=== PATIENT | male | born 1935 | race Caucasian/White ===

== ENCOUNTER 2018-02-15 13:56 | Emergency (ER) | payer MEDICARE, BC, SELFPAY ==
[2018-02-15 13:57] VITALS: BP 120/64; PULSE 95; RESP 16; TEMP 37.8; O2SAT 99; BMI 24.6
--- NOTE | 2018-02-15 14:29 | RAD_ITS ---
STUDY: X-RAY CHEST REASON FOR EXAM: Male, 82 years old. Fever. TECHNIQUE: PA and lateral views of the chest. COMPARISON: None. FINDINGS: EKG electrodes are seen. Hyperinflation. The lungs are clear. There is no demonstrated pleural abnormality. Normal size heart. Normal mediastinum and rubin. Normal visualized pulmonary arteries. There is atherosclerotic calcification of the aortic arch with tortuosity. There are diffuse degenerative changes of the visualized thoracic spine. Normal visualized ribs, clavicles, and shoulders. There is no demonstrated abnormality of the visualized soft tissue structures of the upper abdomen. RAD/Chest PA and Lateral IMPRESSION: Normal x-ray examination of the chest. Electronically Signed: Saji Fitzgerald MD at 15:51 EDT Tel [phone], Service support ,
--- NOTE | 2018-02-15 14:31 | ED.VISSUMM ---
- ER Visit Summary Date of Service: 02/15/18 Chief Complaint: Fever History of Present Illness: The patient is a 82 M history of melanoma with liver and bone metastases. Currently undergoing chemotherapy from a cancer center in [place]. Patient states he is recently had urinary frequency. Today started having a fever. He denies vomiting or diarrhea. States he has had chills and night sweats. Denies melena. Denies any significant cough or shortness of breath. Currently he is undergoing chemotherapy and is unsure of his blood counts. Physical Examination: Older male no acute distress. Vital signs are stable afebrile. Blood pressure 120/64. Temperature 100.1. Pulse ox 9 9% room air no signs of hypoxia. HEENT exam unremarkable. Moist wheeze membranes. Neck nontender no lymphadenopathy. Lungs clear to auscultation bilaterally. Heart regular rate and rhythm no murmur. Abdomen is soft and nontender. Normal bowel sounds no peritoneal signs. He is moving all 4 extremities. They are neurovascularly intact. Normal motor strength and sensation. Back exam is nontender. Both his anterior chest and upper back he has acne with some redness. Neurologically is awake and alert with no focal motor deficits. Test Results: Seizures white count of 5.5 with 73% segmental neutrophils. No bands. H&H of 11.8 and 35. No old labs available for comparison. Chemistry panel shows an anion gap is 7. BUN 31 creatinine 1.3 consistent with mild dehydration. Urinalysis was normal with no nitrates or white cells. Rare bacteria it was sent for culture. This is normal at 1.1. Blood cultures are pending. Chest x-ray shows no acute abnormality read both by myself the radiologist. No pneumonia. Emergency Department Course and Treatment: Immunocompromised male with a fever currently which being treated for melanoma with metastases. On chemotherapy. He will be treated with p.o. Tylenol for the fever and a liter of normal saline. Labs and cultures will be obtained. Treatment Plan: Repeat exam at both 1520 and 1556 he is doing well he feels comfortable being discharged home. His vital signs are stable. His blood pressure remains about 125/70. I did speak with his oncologist from [place]. He wants me to stop the patient's chemo medication that he takes at home. He said with this drug is about a 52% likelihood of patients developing fevers. He does not want me to start him on any antibiotics at this time and their office will follow him up when he gets back to [place]. This was all discussed with the patient is comfortable with the plan. Disposition: Discharge Impression: Acute fever of uncertain etiology History of melanoma with bone and liver metastases Currently being treatment with chemotherapy and immunocompromised. This note was generated with [employer] dictation software. It may contain incorrect words, spelling, and punctuation that were not noted in review of the chart prior to signing ED Disposition - Plan for ED Patient: Chief Complaint: Fever Referrals: [facility] Doctor,Out of [Primary Care Provider] -
--- NOTE | 2018-02-15 14:34 | ED.DCSUM_ITS ---
- ER Visit Summary Date of Service: 02/15/18 Chief Complaint: Fever History of Present Illness: The patient is a 82 M history of melanoma with liver and bone metastases. Currently undergoing chemotherapy from a cancer center in [place]. Patient states he is recently had urinary frequency. Today started having a fever. He denies vomiting or diarrhea. States he has had chills and night sweats. Denies melena. Denies any significant cough or shortness of breath. Currently he is undergoing chemotherapy and is unsure of his blood counts. Physical Examination: Older male no acute distress. Vital signs are stable afebrile. Blood pressure 120/64. Temperature 100.1. Pulse ox 9 9% room air no signs of hypoxia. HEENT exam unremarkable. Moist wheeze membranes. Neck nontender no lymphadenopathy. Lungs clear to auscultation bilaterally. Heart regular rate and rhythm no murmur. Abdomen is soft and nontender. Normal bowel sounds no peritoneal signs. He is moving all 4 extremities. They are neurovascularly intact. Normal motor strength and sensation. Back exam is nontender. Both his anterior chest and upper back he has acne with some redness. Neurologically is awake and alert with no focal motor deficits. Test Results: Seizures white count of 5.5 with 73% segmental neutrophils. No bands. H&H of 11.8 and 35. No old labs available for comparison. Chemistry panel shows an anion gap is 7. BUN 31 creatinine 1.3 consistent with mild dehydration. Urinalysis was normal with no nitrates or white cells. Rare bacteria it was sent for culture. This is normal at 1.1. Blood cultures are pending. Chest x-ray shows no acute abnormality read both by myself the radiologist. No pneumonia. Emergency Department Course and Treatment: Immunocompromised male with a fever currently which being treated for melanoma with metastases. On chemotherapy. He will be treated with p.o. Tylenol for the fever and a liter of normal saline. Labs and cultures will be obtained. Treatment Plan: Repeat exam at both 1520 and 1556 he is doing well he feels comfortable being discharged home. His vital signs are stable. His blood pressure remains about 125/70. I did speak with his oncologist from [place]. He wants me to stop the patient's chemo medication that he takes at home. He said with this drug is about a 52% likelihood of patients developing fevers. He does not want me to start him on any antibiotics at this time and their office will follow him up when he gets back to [place]. This was all discussed with the patient is comfortable with the plan. Disposition: Discharge Impression: Acute fever of uncertain etiology History of melanoma with bone and liver metastases Currently being treatment with chemotherapy and immunocompromised. This note was generated with [employer] dictation software. It may contain incorrect words, spelling, and punctuation that were not noted in review of the chart prior to signing ED Disposition - Plan for ED Patient: Chief Complaint: Fever Referrals: [facility] Doctor,Out of [Primary Care Provider] -
[2018-02-15 14:57] VITALS: BP 124/67; PULSE 78; RESP 17; O2SAT 95
[2018-02-15 14:59] LABS: Color, Urine Yellow (Yellow); Glucose, Dipstick Normal (Normal); Ketone-Dipstick Negative (Negative); Leukocyte Esterase-Dipstick Negative /ul (Negative); Mucous, Urine 0 SEEN /hpf (<or=2+); Nitrite-Dipstick Negative (Negative); Occult Blood-Urine 50 /ul (Negative); Protein-Dipstick 15 mg/dl (Negative); Squamous Epithelial Cells - UA 0 SEEN /hpf (0-5); Urine Bilirubin Dipstick Negative (Negative); Urine Clarity Clear (Clear); Urine Urobilinogen Normal (Normal)
[2018-02-15 15:01] LABS: Basophil# 0.01 X10^3/uL; Basophil% 0.2 % (0-1); Eosinophil# 0.01 X10^3/uL; Eosinophils% 0.2 % (0-5); Hematocrit 35.8 % (40-54); Hemoglobin 11.8 g/dl (13.0-16.5); Lymphocyte % 18.3 % (19-41); Mean Corpuscular Hgb 27.1 pg (27.0-32.0); Mean Corpuscular Volume 82.1 fL (80-94); Mean Platelet Vol. 9.3 fl (6.2-12.0); Monocyte# 0.44 X10^3/uL; Monocyte% 8.1 % (0-10); Neutrophil % 73.2 % (47-70); Platelet Count 187 K/mm3 (150-450); RBC Distribution Width CV 18.7 % (11.6-14.6); RBC Distribution Width SD 56.6 fl (35.1-43.9); Red Blood Count 4.36 M/mm3 (4.6-6.2); White Blood Count 5.5 K/mm3 (4.4-11.0)
[2018-02-15 15:02] LABS: POSITIVE COUNT NO; POSITIVE DIFFERENTIAL NO; POSITIVE MORPHOLOGY NO
[2018-02-15 15:06] VITALS: BP 124/67; PULSE 79; RESP 17; O2SAT 96
[2018-02-15 15:09] LABS: Bacteria RARE /hpf (None Seen); Red Blood Cells-Urine 0-5 SEEN /hpf (0-5); White Blood Cells 0-5 SEEN /hpf (0-5)
[2018-02-15] MEDS: 0.9% Normal Saline 1,000 ML 999 ML IV (15:12)
[2018-02-15] MEDS: Acetaminophen 500 MG Tablet 1000 MG PO (15:12)
[2018-02-15 15:13] LABS: Anion Gap 7 (5-15); BUN 31 mg/dL (7-18); BUN/Creat Ratio 23.8 RATIO (10-20); Calcium,Total 8.1 mg/dL (8.5-10.1); Chloride 103 mmol/L (98-107); EST Glomerular Filtration Rate 56 mL/min (>60); Est Glom Filt Rate - Afr Amer 68 mL/min (>60); Estimated Creatinine Clearance 51.22 ml/min; Glucose 127 mg/dL (74-106); Sodium Level 136 mmol/L (136-145)
[2018-02-15 15:34] LABS: Lactic Acid 1.1 mmol/L (0.4-2.0)
--- NOTE | 2018-02-15 15:59 | ED.DEP ---
ED Disposition - Plan for ED Patient: Disposition: Home or Assisted Living Chief Complaint: Fever Instructions: ED Fever Unconf Cause, ED Fever Control Referrals: [facility] Doctor,Out of [Primary Care Provider] - As soon as possible Additional Instructions: Alternate Tylenol and Motrin for your fever. Plenty of fluids and rest. I spoke to your oncologist in [place]. He said call their office as soon as you get back home and follow-up with him as soon as possible. He will be out of the office next week but 1 of his partners in the office will see you. Stop your chemotherapy at this time there is a 50% chance that that is what is causing her fever. Return to a nearby ER if you are feeling a lot worse.
[2018-02-15 16:04] VITALS: BP 130/69; PULSE 76; RESP 21; TEMP 38.1; O2SAT 95
== END 2018-02-15 16:39 | disposition home or self-care (01) ==
LOC: ED 16:36
PROVIDERS: Emergency Provider Emergency Medicine
DX: R50.9 Fever, unspecified (principal); C78.7 Secondary malignant neoplasm of liver and intrahepatic bile duct; C79.51 Secondary malignant neoplasm of bone; C43.9 Malignant melanoma of skin, unspecified
CPT/HCPCS: 71046; 80048; 81001; 83605; 85025; 87040; 87086; 99285; J7030